=== PATIENT | female | born 1995 | race Caucasian/White ===

== ENCOUNTER 2019-12-31 11:07 | Inpatient (IN) | payer BC, SELFPAY ==
[2019-12-31] MEDS ORDERED: Acetaminophen 325 MG TAB ONE ×3 (11:37→18:15)
[2019-12-31 11:51] LABS: #Lymphocytes 0.8 thou/uL (1.20-3.40); #Monocytes 0.9 thou/uL (0.11-0.59); #Neutrophils 15.4 thou/uL (1.40-6.50); %Basophils 0.1 % (0.0-1.0); %Eosinophils 0.1 % (0.0-10.0); %Lymphocytes 4.5 % (21.0-51.0); %Monocytes 5.5 % (0.0-10.0); %Neutrophils 89.9 % (42.0-75.0); Hemoglobin 13.4 g/dL (12.0-16.0); Mean Corpuscular HGB CONC 34.5 g/dL (32.0-36.0); Mean Corpuscular Hemoglobin 31.8 pg (27.0-31.0); Mean Corpuscular Volume 92.1 fL (78.0-98.0); Mean Platelet Volume 7.4 fL (7.4-10.4); Platelet Count 181 thou/uL (130-400); RBC Distribution Width 10.9 % (11.5-14.5); White Blood Cell (WBC) Count 17.1 thou/uL (4.8-10.8)
--- NOTE | 2019-12-31 11:56 | RAD ---
EXAM: Single view of the chest HISTORY: Fever and cough COMPARISON: None FINDINGS: Single view of the chest shows a normal sized cardiomediastinal silhouette. There is no konstantin dence of consolidation, mass, or pleural effusion. No acute osseous abnormality. IMPRESSION: No evidence of acute cardiopulmonary disease
[2019-12-31 12:24] LABS: ALT (SGPT) Less than 7 U/L (8-55); AST (SGOT) 14 U/L (5-34); Albumin 3.9 g/dL (3.5-5.0); Alkaline Phosphatase 87 U/L (40-110); Anion Gap 13 mmol/L (10-20); BUN (Urea Nitrogen) 10 mg/dL (7.0-18.7); Bilirubin, Total 1.2 mg/dL (0.2-1.2); Calc. Creatinine Clearance 0 mL/min (70-130); Carbon Dioxide 23 mmol/L (22-29); Chloride 100 mmol/L (98-107); Estimated GFR-MDRD 82; Globulin 3.1 g/dL (2.4-3.5); Glucose 132 mg/dL (70-105); Potassium 3.2 mmol/L (3.5-5.1); Sodium 133 mmol/L (136-145)
[2019-12-31] MEDS ORDERED: Iopamidol-370 76% 500 ML 1 ML ONE (12:57)
[2019-12-31 13:45] LABS: Bacteria/HPF 3+ HPF (None Seen); Bilirubin Negative (Negative); Blood, Urine Trace (Negative); Clarity Clear (Clear); Glucose, Urine (Dipstick) Normal (Negative); Ketone, Urine Negative (Negative); Leukocyte 250 Leu/uL (Negative); Nitrite Negative (Negative); Protein, Urine (Dipstick) Negative (Neg-Trace); Specific Gravity, Urine 1.005 (1.002-1.036); Urobilinogen Normal mg/dL (Less than 2)
[2019-12-31 13:48] LABS: Pregnancy Test - Urine (BHCG) Negative (Negative); Pregu Control Background? CLEAR/WHITE (CLR/WHITE); Pregu Control Bar Appear? YES (CONTROL BAR); Specific Gravity 1.005 (1.002-1.036)
[2019-12-31] MEDS ORDERED: Ketorolac Tromethamine 30 MG/ML VIAL ONE (14:09)
[2019-12-31] MEDS ORDERED: cefTRIAXone\\ROCEPHIN 2 GM VIAL ONE (14:09)
--- NOTE | 2019-12-31 15:03 | CT ---
CT Abdomen Pelvis W Con: 12/31/2019 2:30 PM CLINICAL INFORMATION: Fever cough and chills. COMPARISON: None. TECHNIQUE: Multiple contiguous axial images were obtained and a CT of the abdomen and pelvis with IV contrast. C oronal and sagittal reformats were performed. FINDINGS: Lower Chest: within normal limits. Abdomen: Liver: within normal limits. Bile Ducts: Normal caliber. Gallbladder: No calcified gallstones. Normal caliber wall. Pancreas: within normal limits. Spleen: within normal limits. Adrenals: within normal limits. Kidneys: There is a delay in the right nephrogram compared to the left. There is also mild right-side d hydronephrosis. Stranding changes are seen along the lower pole of the left kidney. There is also a tiger stripe appearance of the cortex of the right kidney. Pelvis: Reproductive Organs: No pelvic masses. Ureters: There is mild enlargement of the proximal right ureter. This cannot be completely followed d own to its insertion in the urinary bladder. There is a calcification in the right pelvis which appears to be in a location medial to the expected location of the ureter, but a 2 mm distal ureteral callus cages cannot be entirely excluded. Alternatively, an infection of the right kidney could be present Bladder: within normal limits. Peritoneum: No ascites or free air, no fluid collection. Bowel: Normal caliber. Mesentery and Retroperitoneum: No enlarged mesenteric or retroperitoneal lymph nodes. Vessels: Normal. Abdominal Wall: within normal limits. Bones: Within normal limits IMPRESSION: 1. There is a abnormal enhancement pattern of the right kidney concerning for pyelonephritis. 2. There is a delayed right nephrogram concerning for an obstructive process of the right kidney. A d istal right ureteral calcification cannot be entirely excluded.
--- NOTE | 2019-12-31 17:04 | HP ---
PRIMARY CARE PHYSICIAN: Spencer Birmingham. CHIEF COMPLAINT: Nausea, vomiting, and fever. HISTORY OF PRESENT ILLNESS: This is a 24-year-old white female with a history of recurrent, but uncomplicated urinary tract infections, last one in August, treated and resolved normally. She fell about three weeks ago, felt like she hit her right side, her right back, has been sore since then, but started getting significantly worse after about a week ago. Then over the weekend, the patient started to have some feeling a little bit bad on Monday and Monday she started to feel febrile. She started having nausea and vomiting including bilious vomiting and feeling very weak. This got worse yesterday and so she came into the ER today. She was found to be septic with a fever of 103. She was tachycardic and she had a urinary tract infection. CT of the abdomen did show right-sided pyelonephritis with some question of a possibility of right ureter obstruction. I did call Dr. Donaldson and have her look at the CT and she said it looked like an uncomplicated pyelonephritis without any evidence of a stone and so typical treatment would be fine. The patient has received antibiotics and fluids, antipyretics and antiemetics in the emergency room and is feeling much better, but still feeling weak all over and achy. REVIEW OF SYSTEMS: CONSTITUTIONAL: See HPI. EYES: No double vision or blurred vision. ENT: No congestion, drainage, or sore throat. She does have burning in her throat from the vomiting up some much bile and stomach acid. CARDIOVASCULAR: No chest pain. No palpitations or racing heart. PULMONARY: No coughing, wheezing, or shortness of breath. GASTROINTESTINAL: See HPI. ABDOMEN: Not sore currently. No diarrhea or constipation. GENITOURINARY: No dysuria or hematuria. MUSCULOSKELETAL: She has generalized muscle aches, but no focal areas except for some pain in the right back sore when she rolls on that side. SKIN: No rashes or lesions she has noted. NEUROLOGIC: No numbness, tingling, or focal weakness. Just generalized weakness. PAST MEDICAL HISTORY: Recurrent urinary tract infections. PAST SURGICAL HISTORY: 1. I and D of infected lymph nodes in left leg from cat-scratch disease. 2. Tonsillectomy. SOCIAL HISTORY: The patient vaped up until about 2 weeks ago when she quit. She does drink about 2 to 4 beers about 3 times a week. No illicit drugs. She is a full code. Should she be incapacitated, her mother would be her medical decision maker. Her mother's name is Ema Akers. FAMILY MEDICAL HISTORY: No significant family medical history of kidney disease. ALLERGIES: SHE WAS TOLD THAT SHE WAS HAD CEPHALOSPORIN ALLERGY A BABY, HOWEVER, SHE GOT ROCEPHIN IN THE EMERGENCY ROOM AND HAD NO REACTION TO IT, SO UNLIKELY TO HAVE A TRUE ALLERGY THERE. CURRENT MEDICATIONS: None. PHYSICAL EXAMINATION: VITAL SIGNS: Blood pressure 114/67, pulse 102, respirations 17, temperature down to 99.8, recently was 103 when she came in, O2 saturation 98% on room air. GENERAL: This is a well-developed, well-nourished white female, in no apparent distress. Just a little bit tired. HEENT: Pupils are equal, round, and reactive to light. Oropharynx clear without lesions, erythema, or exudate. NECK: Supple. No lymphadenopathy. No thyroid nodules or enlargement. No JVD. HEART: Regular rate and rhythm. No murmurs, rubs, or gallops. LUNGS: Clear to auscultation bilaterally. No wheezes, crackles, or rhonchi. ABDOMEN: Soft. Some fullness feeling on the right upper and lower quadrant to deep palpation, but no significant pain to palpation. No hepatosplenomegaly or other masses. Normoactive bowel sounds. She does not have any tenderness to percussion of her costovertebral angle in the right, earlier she did. Now, she has more just soreness lower down on her right back. EXTREMITIES: No clubbing, cyanosis, or edema. SKIN: No rashes or lesions noted. NEUROLOGIC: The patient moving all extremities equally. No facial droop. PSYCHIATRIC: Alert and oriented x3. Normal mood and affect. LABORATORY DATA: CBC with a white blood cell count of 17,000, 89% neutrophils. Hemoglobin, hematocrit, and platelet count are normal. Complete metabolic panel is notable for sodium of 133, potassium 3.2, glucose of 132. The rest was normal. Lactic acid was negative x1. Urinalysis shows positive leuk esterase, 11 to 20 white blood cells, 3+ bacteria. CT of the abdomen and pelvis as per the HPI. Chest x-ray, I did review the chest x-ray done in the emergency room along with the radiologist's report. It shows no evidence of acute cardiopulmonary disease. ASSESSMENT: 1. Right-sided pyelonephritis. No evidence of stone or obstruction. We will put the patient on Levaquin 750 mg IV daily, expected to take 2 to 3 days for complete defervescence. When she does, then we might look and consider switching her over to oral antibiotics at that time. Urine and blood cultures are pending. 2. Sepsis. The patient did receive IV fluids in the emergency room and is doing much better. We will continue IV fluids running at normal saline at 100 mL an hour and we will see how she tolerates the diet. Encourage p.o. fluids and we will give antiemetics as needed. 3. Hypokalemia. We will replete and recheck. 4. Hyponatremia, likely due to her sepsis with volume depletion from vomiting. We will monitor after fluid replacement. 5. Gastrointestinal prophylaxis. Put the patient on Pepcid twice a day. 6. Deep venous thrombosis prophylaxis. Put the patient on SCDs while in bed and give her subcu Lovenox when she is in the hospital. 7. Code status. The patient is a full code. Should she be incapacitated, her mother would be her medical decision maker. Job ID: [id number] MTDD
[2019-12-31 20:05] VITALS: BMI 21.7
[2019-12-31] MEDS ORDERED: Ondansetron PF 4 MG/2 ML Vial IVP PRN (20:13)
[2019-12-31] MEDS ORDERED: Acetaminophen 650 MG Suppository PR PRN (20:13)
[2019-12-31] MEDS ORDERED: Guaifenesin DM 100-10/5 ML UDCUP PO PRN (20:13)
[2019-12-31] MEDS ORDERED: Ondansetron ODT 4 MG TAB PO PRN (20:13)
[2019-12-31] MEDS ORDERED: Senokot S 8.6-50 MG TAB PO PRN (20:13)
[2019-12-31] MEDS: Acetaminophen 325 MG TAB PO PRN (21:17)
[2019-12-31] MEDS: Famotidine 20 MG TAB PO SCH (21:18)
[2019-12-31] MEDS: Sodium Chloride 0.9% 1,000 ML IV SCH (21:18)
[2020-01-01] MEDS: Acetaminophen 325 MG TAB PO PRN ×3 (01:10→19:00)
[2020-01-01 05:43] LABS: SARS-CoV-2 MS2 Positive; SARS-CoV-2 N Gene Negative; SARS-CoV-2 S Gene Negative; SARS-CoV-2 by NAA Not Detected (NotDetected); SARS-CoV-2 orf1ab Negative
[2020-01-01] MEDS: Sodium Chloride 0.9% 1,000 ML IV SCH ×2 (06:21→16:18)
[2020-01-01 06:48] LABS: #Lymphocytes 1.1 thou/uL (1.20-3.40); #Monocytes 0.9 thou/uL (0.11-0.59); #Neutrophils 10.1 thou/uL (1.40-6.50); %Basophils 0.2 % (0.0-1.0); %Eosinophils 0.1 % (0.0-10.0); %Lymphocytes 8.9 % (21.0-51.0); %Monocytes 7.6 % (0.0-10.0); %Neutrophils 83.2 % (42.0-75.0); Hemoglobin 10.7 g/dL (12.0-16.0); Mean Corpuscular HGB CONC 34.1 g/dL (32.0-36.0); Mean Corpuscular Hemoglobin 31.9 pg (27.0-31.0); Mean Corpuscular Volume 93.4 fL (78.0-98.0); Mean Platelet Volume 7.4 fL (7.4-10.4); Platelet Count 155 thou/uL (130-400); RBC Distribution Width 11.1 % (11.5-14.5); Red Blood Cell (RBC) Count 3.34 mill/uL (4.20-5.40); White Blood Cell (WBC) Count 12.1 thou/uL (4.8-10.8)
[2020-01-01 07:07] LABS: Anion Gap 10 mmol/L (10-20); BUN (Urea Nitrogen) 8 mg/dL (7.0-18.7); Calc. Creatinine Clearance 108 mL/min (70-130); Calcium 7.8 mg/dL (7.8-10.44); Carbon Dioxide 23 mmol/L (22-29); Chloride 107 mmol/L (98-107); Estimated GFR-MDRD Greater than 90; Glucose 96 mg/dL (70-105); Potassium 3.7 mmol/L (3.5-5.1); Sodium 136 mmol/L (136-145)
[2020-01-01] MEDS: Enoxaparin Sodium 40 MG/0.4 ML SYRINGE SC SCH (08:20)
[2020-01-01] MEDS: Famotidine 20 MG TAB PO SCH ×2 (08:21→21:00)
[2020-01-01] MEDS ORDERED: FLU VACC QS2020-21(6MOS UP)/PF 60 MCG/0.5 ML SYRINGE IM ONE (09:00)
[2020-01-01] MEDS ORDERED: Scopolamine 1.5 mg/72 hour Patch TD SCH (13:00)
--- NOTE | 2020-01-01 20:50 | PDOC.HOSPP ---
- Subjective Encounter Date: 01/01/20 - Objective Vital Signs & Weight: Vital Signs (12 hours) Temp Pulse Resp BP Pulse Ox 01/01/20 20:00 100.4 F H 88 16 90/54 L 97 Weight Admit Weight 130 lb 12.8 oz Weight 130 lb 12.8 oz I&O: 12/31/19 01/01/20 01/02/20 06:59 06:59 06:59 Intake Total 480 Balance 480 Result Diagrams: 01/01/20 06:37 01/01/20 06:37 Hospitalist ROS - Medication Medications: Active Medications Generic Name Dose Route Start Last Admin Trade Name Freq PRN Reason Stop Dose Admin Acetaminophen 650 mg 12/31/19 20:13 01/01/20 19:00 Acetaminophen 325 Mg Tab PO 650 mg Q4H PRN Administration Headache/Fever/Mild Pain (1-3) Enoxaparin Sodium 40 mg 01/01/20 09:00 01/01/20 08:20 Enoxaparin Sodium 40 Mg/0.4 Ml Syringe SC 40 mg 0900 [place] Administration Famotidine 20 mg 12/31/19 21:00 01/01/20 08:21 Famotidine 20 Mg Tab PO 20 mg BID [place] Administration Levofloxacin 750 mg/ Device 150 mls @ 100 mls/hr 12/31/19 21:00 12/31/19 21:18 IVPB 150 mls 2100 [place] Administration Sodium Chloride 1,000 mls @ 100 mls/hr 12/31/19 20:13 01/01/20 16:18 Normal Saline 0.9% IV Not Given .Q10H [place] Ondansetron HCl 4 mg 12/31/19 20:13 01/01/20 04:00 Ondansetron Odt 4 Mg Tab PO 4 mg Q6H PRN Administration Nausea/Vomiting Scopolamine 1.5 mg 01/01/20 13:00 01/01/20 13:04 Scopolamine 1.5 Mg/72 Hour Patch TD 1.5 mg Q3D [place] Administration - Exam General Appearance: awake alert ENT: normocephalic atraumatic Neck: supple, no JVD Respiratory: normal chest expansion, no tachypnea Gastrointestinal: soft Extremities: no cyanosis, no clubbing Neurological: cranial nerve grossly intact, no focal deficits Hosp A/P (1) Sepsis Code(s): A41.9 - SEPSIS, UNSPECIFIED ORGANISM Status: Acute (2) Pyelonephritis Code(s): N12 - TUBULO-INTERSTITIAL NEPHRITIS, NOT SPCF ACUTE OR CHRONIC Status: Acute (3) Nausea & vomiting Code(s): R11.2 - NAUSEA WITH VOMITING, UNSPECIFIED Status: Acute (4) Hypokalemia Code(s): E87.6 - HYPOKALEMIA Status: Acute - Plan Sepsis improving. Continue IV levofloxacin and IVF. Replace K. Scopolamine patch for nausea.
[2020-01-02] MEDS: Sodium Chloride 0.9% 1,000 ML IV SCH ×2 (03:44→13:54)
[2020-01-02] MEDS: Acetaminophen 325 MG TAB PO PRN (05:16)
[2020-01-02 05:28] LABS: #Monocytes 0.8 thou/uL (0.11-0.59); #Neutrophils 5.4 thou/uL (1.40-6.50); %Basophils 0.3 % (0.0-1.0); %Eosinophils 0.6 % (0.0-10.0); %Lymphocytes 14.1 % (21.0-51.0); %Monocytes 10.8 % (0.0-10.0); %Neutrophils 74.3 % (42.0-75.0); Hemoglobin 9.9 g/dL (12.0-16.0); Mean Corpuscular Volume 93.6 fL (78.0-98.0); Mean Platelet Volume 7.9 fL (7.4-10.4); Platelet Count 173 thou/uL (130-400); Red Blood Cell (RBC) Count 3.42 mill/uL (4.20-5.40); White Blood Cell (WBC) Count 7.3 thou/uL (4.8-10.8)
[2020-01-02 05:42] LABS: Anion Gap 9 mmol/L (10-20); BUN (Urea Nitrogen) 5 mg/dL (7.0-18.7); Calc. Creatinine Clearance 114 mL/min (70-130); Carbon Dioxide 25 mmol/L (22-29); Chloride 106 mmol/L (98-107); Estimated GFR-MDRD Greater than 90; Glucose 102 mg/dL (70-105); Potassium 3.5 mmol/L (3.5-5.1); Sodium 136 mmol/L (136-145)
[2020-01-02 07:36] VITALS: BP 96/67; TEMP 98.6
[2020-01-02] MEDS: Famotidine 20 MG TAB PO SCH (08:13)
[2020-01-02] MEDS: Enoxaparin Sodium 40 MG/0.4 ML SYRINGE SC SCH (08:14)
--- NOTE | 2020-01-02 16:16 | PQF ---
CLINICAL DOCUMENTATION CLARIFICATION FORM: Dear Dr.M. Wolf Date: 01/02/2020 0311 Please exercise your independent, professional judgment in responding to the clarification form. Clinical indicators are provided on the bottom of this form for your review. Please check appropriate box(es): [ ] UTI d/t Sepsis: please specify if due to or related to (as applicable): [ ] UTI NOT d/t Sepsis UTI Site: [ ] Kidney [ ] Ureter [ ] Bladder [ ] Urethra [ ] Unable to determine Specify Organism (if known):_Sepsis due to UTI Caused by E coli [ ] Unknown organism [ ] Contaminated urine specimen without UTI [ ] Other diagnosis [ ] Unable to determine In addition, please specify: Present on Admission (POA): [ ] Yes [ ] No [ ] Unable to determine For continuity of documentation, please document condition throughout progress notes and discharge summary. Thank You. To be completed by CDI/Coding staff for physician review: CLINICAL INDICATORS - SIGNS / SYMPTOMS / LABS / RESULTS AND LOCATION IN MR Urine Culture: Escherichia coli ( 12/30) Urine bacteria 3+/ urine WBC 11-20, trace blood ( 12/30) RISK FACTORS / RESULTS AND LOCATION IN MR * Sepsis, Pyelonephritis (Jeffr/ PN) 12/31 TREATMENT / RESULTS AND LOCATION IN MR Urine culture (12/30) Levaquin IV ( 12/30 present) IV Fluids ( 12/31 present) Thank you! CDS Signature: Angela Forde RN Phone #: [phone] Date:01/02/2020 This is a permanent part of the Medical Record [facility]
--- NOTE | 2020-01-03 04:20 | DIS ---
DATE OF ADMISSION: 12/31/2019 DATE OF DISCHARGE: 01/02/2020 DISCHARGE DIAGNOSES: 1. Sepsis. 2. Pyelonephritis. 3. Nausea and vomiting. 4. Hypokalemia. DISCHARGE MEDICATIONS: Levofloxacin 750 mg orally daily for 5 days. HISTORY OF PRESENT ILLNESS AND HOSPITAL COURSE: The patient is a 24-year-old female with past history of recurrent uncomplicated UTIs, who presented to the hospital with complaints of fever, right flank pain, nausea, and vomiting. Her urinalysis was positive for UTI and her initial presentation revealed evidence of leukocytosis and fever in the presence of sepsis. Urine culture was obtained, which showed growth of Escherichia coli, sensitive to fluoroquinolones. The patient was managed with IV Levaquin, which led to resolution of her sepsis within 48 hours. She will complete a full course of antibiotic on an outpatient basis. Job ID: [id number]
== END 2020-01-02 17:33 | disposition home or self-care (01) | DRG 872 ==
LOC: EDSEX 11:07 → ERS 11:07 → OBSVTOIN 15:49 → T4-B 15:49 → UNDOADMOB 15:51 → T4-B 15:51
PROVIDERS: ADMIT Internal Medicine; ATTEND Internal Medicine
DX: A41.51 Sepsis due to Escherichia coli [E. coli] (principal); N12 Tubulo-interstitial nephritis, not specified as acute or chronic; E87.1 Hypo-osmolality and hyponatremia; Z20.828 Contact with and (suspected) exposure to other viral communicable diseases; E87.6 Hypokalemia; E86.9 Volume depletion, unspecified; Z90.89 Acquired absence of other organs; Z88.1 Allergy status to other antibiotic agents
CPT/HCPCS: 36415; 71045; 74177; 80048; 80053; 81003; 81015; 81025; 83605; 85025; 87040; 87077; 87086; 87149; 87186; 87635; 93005; J0696; J1650; J1885; J1956; J2405; Q0162; Q9967; U0003